=== PATIENT | male | born 1985 | race African-American/Black ===

== ENCOUNTER 2017-08-21 15:52 | Inpatient (IN) | payer OTHER ==
[2017-08-21] MEDS ORDERED: 0.9 % SODIUM CHLORIDE 10 ML DISP.SYRIN. IV (16:00)
[2017-08-21] MEDS ORDERED: AZITHROMYCIN 500 MG in IV NORMAL SALINE 250ML 250 ML IV (16:00)
[2017-08-21 16:10] LABS: BASO # 0.2 x10^3/uL (0.0-0.2); BASO % 1 % (0-3); EOS # 0.2 x10^3/uL (0.0-0.7); EOS % 1 % (0-3); HEMATOCRIT 35.9 % (39.0-53.0); HEMOGLOBIN 12.5 g/dL (13.0-17.5); LYMPH % 16 % (24-48); MEAN CORPUSCULAR HEMOGLOBIN 30 pg (25-35); MEAN CORPUSCULAR HGB CONC 35 g/dL (31-37); MEAN CORPUSCULAR VOLUME 87 fL (79-100); MONO # 2.2 x10^3/uL (0.0-1.1); MONO % 9 % (0-9); NEUT # 18.4 x10^3uL (1.8-7.7); NEUT % 74 % (31-73); PLATELET COUNT 583 x10^3/uL (140-400); RED BLOOD COUNT 4.14 x10^6/uL (4.30-5.70); RED CELL DISTRIBUTION WIDTH 17.8 % (11.5-14.5); WHITE BLOOD COUNT 24.9 x10^3/uL (4.0-11.0)
[2017-08-21] MEDS: IV RINGERS,LACTATED 1000ML 1,000 ML IV (16:12)
[2017-08-21 16:14] LABS: ADD MAN DIFF? YES
[2017-08-21] MEDS: ONDANSETRON PF 4 MG/2 ML VIAL. IV (16:14)
[2017-08-21 16:15] LABS: RETIC COUNT 4.3 % (0.5-2.5)
[2017-08-21] MEDS: HYDROmorphone 2 MG/ML VIAL IV/SQ ×2 (16:15→16:43)
[2017-08-21] MEDS: ASPIRIN CHEWABLE 81 MG TABLET. PO (16:18)
[2017-08-21 16:27] LABS: ANION GAP 15 (6-14); BLOOD UREA NITROGEN 6 mg/dL (8-26); CARBON DIOXIDE 25 mmol/L (21-32); CHLORIDE 95 mmol/L (98-107); CREATININE 0.7 mg/dL (0.7-1.3); GFR 157.2; GLUCOSE 114 mg/dL (70-99); POTASSIUM 3.5 mmol/L (3.5-5.1); SODIUM 135 mmol/L (136-145)
[2017-08-21 16:31] LABS: ALBUMIN 3.6 g/dL (3.4-5.0); ALK PHOS 144 U/L (46-116); ALT (SGPT) 54 U/L (16-63); AST (SGOT) 116 U/L (15-37); DIRECT BILIRUBIN 0.7 mg/dL (0.0-0.2); LIPASE 70 U/L (73-393); MAGNESIUM 1.9 mg/dL (1.8-2.4); TOTAL PROTEIN 9.3 g/dL (6.4-8.2)
[2017-08-21 16:32] LABS: THYROID STIM HORMONE (TSH) 1.326 uIU/mL (0.358-3.74)
[2017-08-21 16:34] LABS: TROPONINI < 0.017 ng/mL (0.000-0.055)
[2017-08-21 16:38] LABS: % BANDS 5 % (0-9); % BASOS 1 % (0-3); % LYMPHS 9 % (24-48); % MONOS 13 % (0-10); % SEGS 72 % (35-66); NUCLEATED RBC 9
[2017-08-21 16:39] LABS: PLT ESTIMATE INCREASED (ADEQUATE); POLYCHROMASIA PRESENT
[2017-08-21 16:42] LABS: ANISOCYTOSIS PRESENT; PAPPENHEIMER BODIES PRESENT; POIKILOCYTOSIS PRESENT; SPHEROCYTES OCC
[2017-08-21 16:44] LABS: SCHISTOCYTES FEW
[2017-08-21 16:45] LABS: LACTIC ACID 3.5 mmol/L (0.4-2.0)
[2017-08-21] MEDS ORDERED: ONDANSETRON PF 4 MG/2 ML VIAL. IV (16:45)
[2017-08-21 16:46] LABS: HOWELL-JOLLY BODIES PRESENT
[2017-08-21 16:48] LABS: NT-PRO BNP 61 pg/mL (0-124)
[2017-08-21 16:48] LABS: CKMB MASS < 0.5 ng/mL (0.0-3.6); CREATINE KINASE 31 U/L (39-308)
[2017-08-21 16:57] LABS: INFLUENZA A PATIENT NEGATIVE (NEGATIVE); INFLUENZA B PATIENT NEGATIVE (NEGATIVE); OBC FLU VALID
[2017-08-21 17:11] LABS: BIZZARE CELLS PRESENT; TARGET CELLS MANY
[2017-08-21] MEDS: IV NORMAL SALINE 1000ML BAG 1,000 ML IV (17:12)
[2017-08-21] MEDS: AZITHRMYCN 500MG IVPB FOR OMNI 250 ML IV (17:12)
[2017-08-21] MEDS: ACETAMINOPHEN 325 MG TABLET. PO (17:13)
[2017-08-21 23:47] LABS: LACTIC ACID 1.1 mmol/L (0.4-2.0)
[2017-08-22] MEDS: fentaNYL PF VIAL 100 MCG/2 ML VIAL IV ×3 (00:47→10:22)
[2017-08-22] MEDS: IV NORMAL SALINE 1000ML BAG 1,000 ML IV ×2 (00:47→07:26)
[2017-08-22] MEDS: ENOXAPARIN 40 MG/0.4 ML SYRINGE. SQ (09:00)
[2017-08-22] MEDS ORDERED: PIP/TAZO PER PHARMACY MC (09:30)
[2017-08-22] MEDS: LACTOBACILLUS RHAMNOSUS GG 1 CAPSULE. PO ×2 (10:21→22:19)
[2017-08-22] MEDS: VANCOMYCIN 1.5 GM in IV DEXTROSE 5 %-0.2 % NACL 500 ML IV (10:23)
[2017-08-22] MEDS: PIPERACILLIN/TAZO IV Push 3.375 GM VIAL. IVP ×3 (10:23→23:57)
[2017-08-22] MEDS: IOHEXOL 300 MG/ML 100ML VIAL. IV (10:45)
[2017-08-22] MEDS ORDERED: CONTRAST GIVEN MC (10:45)
[2017-08-22] MEDS: VANCOMYCIN PER PHARMACY MC ×2 (13:40→13:45)
[2017-08-22] MEDS: MORPHINE SULFATE 2 MG/ML DISP.SYRIN. IV ×2 (14:42→18:09)
[2017-08-22] MEDS: ACETAMINOPHEN 325 MG TABLET. PO (14:42)
[2017-08-22] MEDS: VANCOMYCIN 1 GM in IV DEXTROSE 5% 250 ML IV (18:10)
[2017-08-22] MEDS: MORPHINE SULFATE 4 MG/ML DISP.SYRIN. IV (22:20)
[2017-08-23] MEDS: ACETAMINOPHEN 325 MG TABLET. PO ×3 (00:21→17:13)
[2017-08-23] MEDS: MORPHINE SULFATE 4 MG/ML DISP.SYRIN. IV (00:22)
[2017-08-23] MEDS: VANCOMYCIN 1 GM in IV DEXTROSE 5% 250 ML IV ×2 (02:27→11:50)
[2017-08-23] MEDS: PIPERACILLIN/TAZO IV Push 3.375 GM VIAL. IVP ×3 (05:14→12:00)
[2017-08-23] MEDS: LACTOBACILLUS RHAMNOSUS GG 1 CAPSULE. PO ×2 (08:10→20:40)
[2017-08-23] MEDS: MORPHINE SULFATE 2 MG/ML DISP.SYRIN. IV ×3 (08:12→23:53)
[2017-08-23] MEDS: ENOXAPARIN 40 MG/0.4 ML SYRINGE. SQ ×2 (08:12→09:00)
[2017-08-23 10:00] LABS: VANC TR 7.6 mcg/mL (10.0-20.0)
[2017-08-23] MEDS: VANCOMYCIN PER PHARMACY MC (10:31)
[2017-08-23 13:15] LABS: RETIC COUNT 2.7 % (0.5-2.5)
[2017-08-23] MEDS: IV NORMAL SALINE 1000ML BAG 1,000 ML IV ×2 (19:00→23:56)
[2017-08-23] MEDS: PIPERACILLIN/TAZOBACTAM 3.375 GM in IV NORMAL SALINE 50ML 50 ML IV ×2 (19:50→23:47)
[2017-08-23] MEDS: IBUPROFEN 600 MG TABLET. PO (23:47)
[2017-08-24] MEDS: PIPERACILLIN/TAZOBACTAM 3.375 GM in IV NORMAL SALINE 50ML 50 ML IV ×3 (05:07→17:45)
[2017-08-24 07:59] LABS: ADD MAN DIFF? NO
[2017-08-24 08:12] LABS: BASO % 0 % (0-3); EOS # 0.3 x10^3/uL (0.0-0.7); EOS % 2 % (0-3); HEMATOCRIT 29.4 % (39.0-53.0); HEMOGLOBIN 10.1 g/dL (13.0-17.5); LYMPH # 0.9 x10^3/uL (1.0-4.8); LYMPH % 6 % (24-48); MEAN CORPUSCULAR HEMOGLOBIN 30 pg (25-35); MEAN CORPUSCULAR HGB CONC 35 g/dL (31-37); MEAN CORPUSCULAR VOLUME 88 fL (79-100); MONO # 1.6 x10^3/uL (0.0-1.1); MONO % 12 % (0-9); NEUT % 80 % (31-73); PLATELET COUNT 521 x10^3/uL (140-400); RED BLOOD COUNT 3.36 x10^6/uL (4.30-5.70); RED CELL DISTRIBUTION WIDTH 17.3 % (11.5-14.5); WHITE BLOOD COUNT 13.7 x10^3/uL (4.0-11.0)
[2017-08-24] MEDS: LACTOBACILLUS RHAMNOSUS GG 1 CAPSULE. PO ×2 (08:13→21:26)
[2017-08-24] MEDS: ENOXAPARIN 40 MG/0.4 ML SYRINGE. SQ (08:14)
[2017-08-24 08:19] LABS: ANION GAP 9 (6-14); BLOOD UREA NITROGEN 7 mg/dL (8-26); CALCIUM 8.3 mg/dL (8.5-10.1); CARBON DIOXIDE 27 mmol/L (21-32); CHLORIDE 102 mmol/L (98-107); CREATININE 0.7 mg/dL (0.7-1.3); GFR 157.2; GLUCOSE 90 mg/dL (70-99); POTASSIUM 3.5 mmol/L (3.5-5.1); SODIUM 138 mmol/L (136-145)
[2017-08-24 11:00] LABS: INFLUENZA A PATIENT NEGATIVE (NEGATIVE); INFLUENZA B PATIENT NEGATIVE (NEGATIVE); OBC FLU VALID
[2017-08-24] MEDS: IV NORMAL SALINE 1000ML BAG 1,000 ML IV ×2 (12:46→21:27)
[2017-08-25] MEDS: PIPERACILLIN/TAZOBACTAM 3.375 GM in IV NORMAL SALINE 50ML 50 ML IV ×5 (00:05→23:51)
[2017-08-25] MEDS: MORPHINE SULFATE 2 MG/ML DISP.SYRIN. IV ×2 (00:10→20:43)
[2017-08-25 05:38] LABS: HEMATOCRIT 26.6 % (39.0-53.0); HEMOGLOBIN 9.2 g/dL (13.0-17.5); MEAN CORPUSCULAR HGB CONC 35 g/dL (31-37)
[2017-08-25 05:42] LABS: RETIC COUNT 1.3 % (0.5-2.5)
[2017-08-25] MEDS: IV NORMAL SALINE 1000ML BAG 1,000 ML IV ×2 (05:43→17:13)
[2017-08-25] MEDS: HYDROcodone/APAP 5/325MG 1 TAB TABLET PO (05:48)
[2017-08-25] MEDS: LACTOBACILLUS RHAMNOSUS GG 1 CAPSULE. PO ×2 (08:25→20:38)
[2017-08-25] MEDS: ENOXAPARIN 40 MG/0.4 ML SYRINGE. SQ (08:27)
[2017-08-25] MEDS: IBUPROFEN 600 MG TABLET. PO (08:33)
[2017-08-25] MEDS: IPRATRPIUM/ALBUTEROL 0.5/2.5MG 3 ML NEBU. NEB ×4 (13:24→19:17)
[2017-08-26] MEDS: MORPHINE SULFATE 2 MG/ML DISP.SYRIN. IV (04:03)
[2017-08-26] MEDS: IV NORMAL SALINE 1000ML BAG 1,000 ML IV ×3 (04:03→17:26)
[2017-08-26] MEDS: PIPERACILLIN/TAZOBACTAM 3.375 GM in IV NORMAL SALINE 50ML 50 ML IV ×3 (06:06→17:26)
[2017-08-26 06:46] LABS: ANION GAP 12 (6-14); BLOOD UREA NITROGEN 4 mg/dL (8-26); CALCIUM 7.9 mg/dL (8.5-10.1); CARBON DIOXIDE 23 mmol/L (21-32); CHLORIDE 104 mmol/L (98-107); CREATININE 0.6 mg/dL (0.7-1.3); GFR 187.8; GLUCOSE 95 mg/dL (70-99); POTASSIUM 3.5 mmol/L (3.5-5.1); SODIUM 139 mmol/L (136-145)
[2017-08-26 06:55] LABS: BASO % 0 % (0-3); EOS # 0.3 x10^3/uL (0.0-0.7); EOS % 2 % (0-3); HEMATOCRIT 25.8 % (39.0-53.0); HEMOGLOBIN 9.1 g/dL (13.0-17.5); LYMPH # 4.2 x10^3/uL (1.0-4.8); LYMPH % 37 % (24-48); MEAN CORPUSCULAR HEMOGLOBIN 30 pg (25-35); MEAN CORPUSCULAR HGB CONC 35 g/dL (31-37); MEAN CORPUSCULAR VOLUME 85 fL (79-100); MONO # 0.8 x10^3/uL (0.0-1.1); MONO % 7 % (0-9); NEUT % 53 % (31-73); PLATELET COUNT 557 x10^3/uL (140-400); RED BLOOD COUNT 3.04 x10^6/uL (4.30-5.70); RED CELL DISTRIBUTION WIDTH 17.3 % (11.5-14.5); WHITE BLOOD COUNT 11.3 x10^3/uL (4.0-11.0)
[2017-08-26] MEDS: IPRATRPIUM/ALBUTEROL 0.5/2.5MG 3 ML NEBU. NEB ×4 (07:06→19:28)
[2017-08-26 07:11] LABS: ADD MAN DIFF? YES
[2017-08-26] MEDS: LACTOBACILLUS RHAMNOSUS GG 1 CAPSULE. PO ×2 (08:15→20:24)
[2017-08-26] MEDS: ENOXAPARIN 40 MG/0.4 ML SYRINGE. SQ (08:17)
[2017-08-26 11:36] LABS: % EOS 1 % (0-5); % LYMPHS 22 % (24-48); % MONOS 5 % (0-10); % SEGS 72 % (35-66); NUCLEATED RBC 2
[2017-08-26 11:40] LABS: ANISOCYTOSIS PRESENT; PLT ESTIMATE INCREASED (ADEQUATE); POIKILOCYTOSIS PRESENT; SPHEROCYTES PRESENT; TARGET CELLS PRESENT
[2017-08-27] MEDS: HYDROcodone/APAP 5/325MG 1 TAB TABLET PO (00:01)
[2017-08-27] MEDS: PIPERACILLIN/TAZOBACTAM 3.375 GM in IV NORMAL SALINE 50ML 50 ML IV ×3 (05:41→12:39)
[2017-08-27] MEDS: IPRATRPIUM/ALBUTEROL 0.5/2.5MG 3 ML NEBU. NEB ×2 (07:34→12:35)
[2017-08-27] MEDS: LACTOBACILLUS RHAMNOSUS GG 1 CAPSULE. PO (08:13)
[2017-08-27] MEDS: ENOXAPARIN 40 MG/0.4 ML SYRINGE. SQ (08:18)
[2017-08-27 08:28] LABS: ADD MAN DIFF? NO
[2017-08-27 08:45] LABS: BASO % 1 % (0-3); EOS % 2 % (0-3); HEMATOCRIT 29.1 % (39.0-53.0); HEMOGLOBIN 10.2 g/dL (13.0-17.5); LYMPH % 38 % (24-48); MEAN CORPUSCULAR HEMOGLOBIN 30 pg (25-35); MEAN CORPUSCULAR HGB CONC 35 g/dL (31-37); MEAN CORPUSCULAR VOLUME 84 fL (79-100); MONO % 7 % (0-9); NEUT % 53 % (31-73); PLATELET COUNT 674 x10^3/uL (140-400); RED BLOOD COUNT 3.45 x10^6/uL (4.30-5.70); RED CELL DISTRIBUTION WIDTH 17.9 % (11.5-14.5); WHITE BLOOD COUNT 10.5 x10^3/uL (4.0-11.0)
[2017-08-27 08:46] LABS: BASO # 0.1 x10^3/uL (0.0-0.2); EOS # 0.2 x10^3/uL (0.0-0.7); MONO # 0.7 x10^3/uL (0.0-1.1); NEUT # 5.5 x10^3uL (1.8-7.7)
[2017-08-27 09:02] LABS: ANION GAP 10 (6-14); BLOOD UREA NITROGEN 3 mg/dL (8-26); CALCIUM 8.6 mg/dL (8.5-10.1); CARBON DIOXIDE 26 mmol/L (21-32); CHLORIDE 103 mmol/L (98-107); CREATININE 0.7 mg/dL (0.7-1.3); GFR 157.2; GLUCOSE 90 mg/dL (70-99); POTASSIUM 3.6 mmol/L (3.5-5.1); SODIUM 139 mmol/L (136-145)
[2017-08-27] MEDS ORDERED: LINEZOLID 600 MG TABLET PO (21:00)
== END 2017-08-27 14:30 | disposition home or self-care (01) | DRG 177 ==
LOC: ER 15:52 → ED HOLD 16:25 → 5 NORTH 19:49
DX: J69.0 Pneumonitis due to inhalation of food and vomit (principal); D57.219 Sickle-cell/Hb-C disease with crisis, unspecified; J90 Pleural effusion, not elsewhere classified; F17.210 Nicotine dependence, cigarettes, uncomplicated; J44.9 Chronic obstructive pulmonary disease, unspecified; D72.829 Elevated white blood cell count, unspecified; Z83.3 Family history of diabetes mellitus
CPT/HCPCS: 36415; 71046; 71275; 80048; 80076; 80202; 82553; 83605; 83690; 83735; 83880; 84443; 84484; 85007; 85014; 85018; 85025; 85045; 87040; 87804; 87804-59; 93005; 94640; 96365; 96367; 96375; 99291; 99291-25; J0456; J0690; J1170; J1650; J2020; J2270; J2405; J2543; J3010; J3370; J7030; J7120; J7620